=== PATIENT | male | born 1985 | race Two or more races ===

== ENCOUNTER 2023-02-19 13:23 | Emergency (ER) | payer OTHER ==
[~2023-02-19] VITALS: Ht 185.4 cm; Wt 78.4 kg
[2023-02-19] MEDS ORDERED: LIDOCAINE 1% HCL (LOCAL ANESTH.) INJ 20ML MDV ID ONE (14:30)
[2023-02-19] MEDS ORDERED: TETANUS-DIPTH-ACEL PERTUSSIS 0.5ML SYR Tdap IM ONE (14:30)
[2023-02-19] MEDS ORDERED: CEPH-510 PO (14:46)
[2023-02-19] MEDS ORDERED: ACET-1158 PO (14:46)
[2023-02-19 17:20] VITALS: BP 126/70
== END 2023-02-19 14:47 | disposition home or self-care (01) ==
LOC: ER 13:23
DX: S61.411A Laceration without foreign body of right hand, initial encounter (principal); W26.8XXA Contact with other sharp object(s), not elsewhere classified, initial encounter; Y93.89 Activity, other specified; Y92.89 Other specified places as the place of occurrence of the external cause; Y99.8 Other external cause status
CPT/HCPCS: 12002; 90471; 90715; 99283; J2001